=== PATIENT | female | born 1950 | race Caucasian/White ===

== ENCOUNTER → 2017-03-31 | Outpatient (CLI) | payer MEDICARE, BC ==
[~2017-03-31] MED LIST: CEP500 PO; CLI150 PO; CLIN-1 PO; CLON-303 *; ESCI5TAB10 PO; ESOM40CA42 PO; FLUO40CA76 PO; LOR5/325 PO; MECL-111 PO; OLME1TAB54 PO; PER PO; ROP5 PO
== END ==
LOC: LAB 12:20
PROVIDERS: ATTEND Internal Medicine
DX: Z00.00 Encounter for general adult medical examination without abnormal findings (principal); I10 Essential (primary) hypertension; E05.90 Thyrotoxicosis, unspecified without thyrotoxic crisis or storm; K58.9 Irritable bowel syndrome, unspecified; F33.9 Major depressive disorder, recurrent, unspecified; F41.9 Anxiety disorder, unspecified; Q67.6 Pectus excavatum; E46 Unspecified protein-calorie malnutrition; R73.01 Impaired fasting glucose
CPT/HCPCS: 36415; 83036; G0472; 82310; 82374; 82435; 82465; 82565; 82947; 83718; 84132; 84295; 84478; 84520; 86803

== ENCOUNTER 2017-10-08 22:59 | Emergency (ER) | payer MEDICARE, BC ==
[2017-10-08 23:12] VITALS: BP 149/89
[2017-10-08] MEDS ORDERED: TRANEXAMIC AC 1000 MG/10ML SDV ONE (23:30)
--- NOTE | 2017-10-09 00:51 | RADIOLOGY IMAGING REPORT ---
FACILITY: [facility] [place] PATIENT NAME: Ailyn Tang : 1950 MR: [id number] V: [id number] EXAM DATE: ORDERING PHYSICIAN: ALEXA VEGA TECHNOLOGIST: Location: [facility] Patient: Ailyn Tang : 1950 Visit/Account:[id number] Date of Sevice: 10/08/2017 FINGER: Indication: Laceration. Technique: 3 views of the right second finger were obtained. Comparison: None. Findings: There is no evidence of fracture, dislocation, or other acute deformity. There is normal mi neralization of the skeletal structures. There is no evidence of soft tissue deformity or opaque fore ign body. IMPRESSION: No evidence of focal skeletal deformity or opaque foreign body. Report Dictated By: Ellis Jane MD at 10/09/2017 12:44 AM Report E-Signed By: Ellis Jane MD at 10/09/2017 12:47 AM WSN:[id number]
[2017-10-09] MEDS ORDERED: METO5TAB75 PO (01:01)
[2017-10-09] MEDS ORDERED: ESOM40CA42 PO (01:01)
[2017-10-09] MEDS ORDERED: CLON-304 PO (01:01)
[2017-10-09] MEDS ORDERED: AMPH10CA17 PO (01:01)
[2017-10-09] MEDS ORDERED: CLON-335 PO (01:01)
[2017-10-09] MEDS ORDERED: HYDR-2966 PO (01:01)
[2017-10-09] MEDS ORDERED: DULO60CA7 (01:01)
[2017-10-09] MEDS ORDERED: DICY10CA11 PO (01:01)
--- NOTE | 2017-10-09 01:02 | ER Report ---
History and Physical Time Seen By MD: 00:10 Hx. of Stated Complaint: Cut finger doing dishes. HPI/ROS CHIEF COMPLAINT: Laceration of the right 2nd digit dorsal aspect HISTORY OF PRESENT ILLNESS: Patient is a 66-year-old female who shortly prior to arrival cut her finger on the dorsal aspect of the 2nd digit while doing dishes. Patient was actively bleeding at time of initial evaluation. Tetanus is up-to-date. An approximately 2 cm flap of skin still connected and the proximal finger was present. Patient was evaluated and tendon involvement was not present. Patient remained neurovascularly intact. Patient denies further injuries at this time. REVIEW OF SYSTEMS: Constitutional: No fever, no chills. Skin: No rashes, + right 2nd digit dorsal laceration flap with active bleeding Neurological: Neurovascular exam is intact distal to the injury site. Allergies: Coded Allergies: Penicillins (Verified Allergy, Severe, THROAT SWELLING, 10/25/10) Home Meds Active Scripts Doxycycline Hyclate (DOXYCYCLINE HYCLATE) 100 Mg Tablet, 100 MG PO BID for 7 Days, #14 TAB Prov:ALEXA VEGA DO 10/09/17 Reported Medications Esomeprazole Magnesium (NEXIUM) 40 Mg Capsule.dr, 1 CAP PO QDAY, CAP 10/09/17 Metoclopramide Hcl (METOCLOPRAMIDE HCL) 5 Mg Tablet, 5 MG PO QID 10/09/17 Hydrochlorothiazide (HYDROCHLOROTHIAZIDE) 25 Mg Tablet, 1 TAB PO QDAY, TAB 10/09/17 Duloxetine HCl (Duloxetine HCl) 60 Mg Capsule. 10/09/17 Amphet Asp/Amphet/D-Amphet (ADDERALL XR 10 MG CAPSULE) 10 Mg Cap.er.24h, 10 MG PO 10/09/17 Dicyclomine Hcl (DICYCLOMINE HCL) 10 Mg Capsule, 10 MG PO QID, CAPSULE 10/09/17 Clonazepam (CLONAZEPAM) 1 Mg Tablet, 1 MG PO QAM, #6 TAB 10/09/17 Clonazepam (CLONAZEPAM) 2 Mg Tablet, 2 MG PO QHS, #6 TAB 10/09/17 Esomeprazole Mag Trihydrate (Nexium) 40 Mg Capsule.dr, 40 MG PO PRN, 0 Refills 10/25/10 Clonazepam (Clonazepam) 1 Mg Tablet, 1 MG * PRN, 0 Refills 10/25/10 Hx Smoking: No Hx Substance Use Disorder: No Hx Alcohol Use: No Constitutional Vital Sign - Last 24 Hours 10/08/17 23:12 Temp 98.6 Pulse 92 Resp 16 B/P (MAP) 149/89 Pulse Ox 93 O2 Delivery Room Air Physical Exam General Appearance: The patient is alert, has no immediate need for airway protection and no signs of toxicity. NAD Neurological: Neurovascular exam is intact distal to the laceration, approximately 2 cm laceration flap still connected proximal aspect of the finger on the dorsum of the 2nd digit of the right hand was present, there was no tendon involvement Skin: Warm and dry, no rashes. Extremities are nontender, nonswollen and have full range of motion. DIFFERENTIAL DIAGNOSIS: After history and physical exam differential diagnosis was considered for laceration, foreign body, fracture Medical Decision Making EKG/Imaging Imaging FINGER: Indication: Laceration. Technique: 3 views of the right second finger were obtained. Comparison: None. Findings: There is no evidence of fracture, dislocation, or other acute deformity. There is normal mineralization of the skeletal structures. There is no evidence of soft tissue deformity or opaque foreign body. IMPRESSION: No evidence of focal skeletal deformity or opaque foreign body. ED Course/Re-evaluation ED Course Patient is a 66-year-old female here with a finger laceration of the 2nd digit dorsal aspect of the right hand with an approximately 2 cm laceration flap which was still attached at the proximal aspect supplying scant blood flow to the site. Initially, tranexamic acid soaked gauze was applied for hemostasis. X- ray showed no retained foreign bodies or fractures. A digital block was performed using 2% lidocaine. 7 interrupted 4-0 Ethilon sutures were used to close the laceration and did achieve hemostasis. Patient is followed by an orthopedic doctor who she'll see in the morning. Patient was started on prophylactic antibiotics using doxycycline due to allergy. Patient was stable at time of discharge and remained neurovascularly intact in the digit. Procedure Procedure: Laceration repair. Verbal consent was obtained from the patient. The 2 cm circular laceration of the dorsal aspect of the 2nd finger of the right hand laceration was anesthetized using a digital block The wound was irrigated, draped and explored to its base with a gloved finger. There were no deep structures involved. No tendon injury was identified. The wound was repaired with 7 (4-0) interrupted ethilon sutures. The wound repair was complicated. The procedure was performed by myself. Decision to Disposition Date: Oct 09, 2017 Decision to Disposition Time: 01:27 Depart Departure Latest Vital Signs Vital Signs Date Time Temp Pulse Resp B/P (MAP) Pulse Ox O2 Delivery O2 Flow Rate FiO2 10/08/17 23:12 98.6 92 16 149/89 93 Room Air Impression: Primary Impression: Finger laceration Condition: Improved Disposition: HOME OR SELF-CARE Referrals: JOY HARDY MD (PCP) New Scripts Doxycycline Hyclate (DOXYCYCLINE HYCLATE) 100 Mg Tablet 100 MG PO BID for 7 Days, #14 TAB Prov: ALEXA VEGA DO 10/09/17 Patient Instructions: Finger Laceration (ED) Additional Instructions: A total of 7 sutures were used to close the laceration using 4-0 Ethilon. Please follow-up with your orthopedic doctor tomorrow. Please return promptly if he develop worsening pain, swelling, bleeding, rash. Please take one pill of Doxycycline two times a day until complete. ALEXA VEGA DO Oct 09, 2017 01:02
[2017-10-09] MEDS ORDERED: DOXY-179 PO (01:05)
[2017-10-09] MEDS ORDERED: DOXYCYCLINE HYCL 100 MG TAB PO ONE (01:05)
== END 2017-10-09 01:30 | disposition home or self-care (01) ==
LOC: ER 23:16
DX: S61.210A Laceration without foreign body of right index finger without damage to nail, initial encounter (principal)
CPT/HCPCS: 12001; 73140; 99283; A9270

== ENCOUNTER 2018-03-25 00:28 | Emergency (ER) | payer MEDICARE, BC ==
[~2018-03-25 00:28] MED LIST changes: +AMPH10CA17 PO; +CLON-333 PO; +CLON-335 PO; +DICY10CA11 PO; +DOXY-179 PO; +DULO60CA7; +HYDR-2966 PO; +METO5TAB75 PO
--- NOTE | 2018-03-25 00:53 | ER Report ---
History and Physical Time Seen By MD: 00:52 Hx. of Stated Complaint: pt got bleach and lemon lysol in eyes on monday HPI/ROS CHIEF COMPLAINT: Eye fisher HISTORY OF PRESENT ILLNESS: 67-year-old female presents ambulatory to the ER complaining of eye fisher on Monday, 4 days ago. She mixed Lysol ammonia and chlorine bleach releasing toxic chlorine gas burning her eyes. She's been using [id number] medications to soothe her eyes. She's had quite a bit of tearing mattering. Patient notes no difficulty breathing. She notes no sinus burning. No oral pharyngeal burning. REVIEW OF SYSTEMS: Respiratory: No cough, no dyspnea. Cardiovascular: No chest pain, no palpitations. Gastrointestinal: No vomiting, no abdominal pain. Musculoskeletal: No back pain. Allergies: Coded Allergies: Penicillins (Verified Allergy, Severe, THROAT SWELLING, 10/25/10) Home Meds Active Scripts Triamcinolone Acetonide 0.025% (TRIAMCINOLONE ACETONIDE 0.025%) 15 Gm Cr, 1 GM TOP BID for skin rash, #30 TUBE Apply a small amount twice daily to the affected areas of your eyelids Prov:PARVIZ JOEL DO 03/25/18 Doxycycline Hyclate (DOXYCYCLINE HYCLATE) 100 Mg Tablet, 100 MG PO BID for 7 Days, #14 TAB Prov:ALEXA VEGA DO 10/09/17 Reported Medications Esomeprazole Magnesium (NEXIUM) 40 Mg Capsule.dr, 1 CAP PO QDAY, CAP 10/09/17 Metoclopramide Hcl (METOCLOPRAMIDE HCL) 5 Mg Tablet, 5 MG PO QID 10/09/17 Hydrochlorothiazide (HYDROCHLOROTHIAZIDE) 25 Mg Tablet, 1 TAB PO QDAY, TAB 10/09/17 Duloxetine HCl (Duloxetine HCl) 60 Mg Capsule. 10/09/17 Amphet Asp/Amphet/D-Amphet (ADDERALL XR 10 MG CAPSULE) 10 Mg Cap.er.24h, 10 MG PO 10/09/17 Dicyclomine Hcl (DICYCLOMINE HCL) 10 Mg Capsule, 10 MG PO QID, CAPSULE 10/09/17 Clonazepam (CLONAZEPAM) 1 Mg Tablet, 1 MG PO QAM, #6 TAB 10/09/17 Clonazepam (CLONAZEPAM) 2 Mg Tablet, 2 MG PO QHS, #6 TAB 10/09/17 Esomeprazole Mag Trihydrate (Nexium) 40 Mg Capsule.dr, 40 MG PO PRN, 0 Refills 10/25/10 Clonazepam (Clonazepam) 1 Mg Tablet, 1 MG * PRN, 0 Refills 10/25/10 Reviewed Nurses Notes: Yes Old Medical Records Reviewed: Yes Hx Smoking: No Hx Substance Use Disorder: No Hx Alcohol Use: No Constitutional Vital Sign - Last 24 Hours 03/25/18 03/25/18 00:36 01:00 Temp 98.9 Pulse 93 Resp 18 B/P (MAP) 182/100 168/98 (121) Pulse Ox 94 Physical Exam Vital signs stable, afebrile, pulse ox normal General Appearance: The patient is alert, has no immediate need for airway protection and no current signs of toxicity. Mild distress HEENT: Pupils equal and round no injection. There is gross injection of both eyes. Corneas are unremarkable with foreseen. Patient has gross excoriation and peeling of her lids on both upper and lower eyelids bilaterally. There is no warmth to suggest secondary bacterial infection. Respiratory: Chest is non tender, lungs are clear to auscultation. Cardiac: regular rate and rhythm Gastrointestinal: Abdomen is soft and non tender, no masses, bowel sounds normal. Musculoskeletal: Neck: Neck is supple and non tender. Extremities have full range of motion and are non tender. Skin: No rashes or lesions. DIFFERENTIAL DIAGNOSIS: After history and physical exam differential diagnosis was considered for contact dermatitis, chemical fisher, toxic exposure, Medical Decision Making ED Course/Re-evaluation ED Course Patient was admitted to an examination room. H&P was done. The differential diagnosis was considered. Patient with bilateral chemical fisher and excoriation of her skin, likely contact dermatitis. Patient mixed bleach and ammonia likely releasing [place] gas burning her eyelids and eyes bilaterally. Unfortunately, patient is 4 days out from her initial exposure. Much of the damages been done. Her skin appears to be sloughing off. Patient's given Tobrex drops to soothe her eyes. She is given triamcinolone 0.025% cream to put on her eyelids to reduce the inflammation and moisturize them. Patient's advised to follow-up with Dr. Dominic Shepard ophthalmology for further treatment. Decision to Disposition Date: Mar 25, 2018 Decision to Disposition Time: 00:58 Depart Departure Latest Vital Signs Vital Signs Date Time Temp Pulse Resp B/P (MAP) Pulse Ox O2 Delivery O2 Flow Rate FiO2 03/25/18 01:00 168/98 (121) 03/25/18 00:36 98.9 93 18 94 Impression: Primary Impression: Blepharitis of both eyes Additional Impression: Conjunctivitis Condition: Improved Disposition: HOME OR SELF-CARE Referrals: JOY HARDY MD (PCP) DOMINIC SHEPARD MD New Scripts Triamcinolone Acetonide 0.025% (TRIAMCINOLONE ACETONIDE 0.025%) 15 Gm Cr 1 GM TOP BID for skin rash, #30 TUBE Apply a small amount twice daily to the affected areas of your eyelids Prov: PARVIZ JOEL DO 03/25/18 Patient Instructions: Blepharitis (ED), Conjunctivitis (ED) Additional Instructions: Use Tobradex drops 1 drop twice daily in each eye Follow-up with Dr. Harry early next week. Ophthalmology Problem Qualifiers Primary Impression: Blepharitis of both eyes Blepharitis type: unspecified type Eyelid: both upper and lower Qualified Codes: H01.00A - Unspecified blepharitis right eye, upper and lower eyelids; H01.00B - Unspecified blepharitis left eye, upper and lower eyelids Additional Impression: Conjunctivitis Conjunctivitis type: acute Acute conjunctivitis type: toxic Laterality: bilateral Qualified Codes: H10.213 - Acute toxic conjunctivitis, bilateral PARVIZ JOEL DO Mar 25, 2018 00:53
[2018-03-25 01:00] VITALS: BP 168/98
[2018-03-25] MEDS ORDERED: TRIA5T TOP (01:01)
[2018-03-25] MEDS ORDERED: TOBRAMYCIN/DEX OP SUSP 2.5 ML OU ONE (01:05)
== END 2018-03-25 01:15 | disposition home or self-care (01) ==
LOC: ER 00:34
DX: H01.00A Unspecified blepharitis right eye, upper and lower eyelids (principal); H01.00B Unspecified blepharitis left eye, upper and lower eyelids; H10.213 Acute toxic conjunctivitis, bilateral
CPT/HCPCS: 99282; A9270